=== PATIENT | male | born 1995 | race Caucasian/White ===

== ENCOUNTER → 2020-03-12 11:00 | Outpatient (BNVA) | payer MEDICARE, MEDICAID, SELFPAY | PROVIDERS: PCP Family Medicine; Visit Provider Specialist | DX: G40.309 Generalized idiopathic epilepsy and epileptic syndromes, not intractable, without status epilepticus (principal); F17.220 Nicotine dependence, chewing tobacco, uncomplicated | CPT/HCPCS: 99205 ==

== ENCOUNTER 2020-03-14 09:57 | Outpatient (CLI) | payer MEDICARE, MEDICAID, SELFPAY ==
--- NOTE | 2020-03-14 10:24 | XR_ITS ---
WS: [id number] CHEST 2 VIEWS HISTORY: Vagal nerve stimulator COMPARISON: None available. Lungs: Clear with no abnormality. No pleural effusion or pneumothorax. Cardiac size: Normal. Battery pack are available nerve stimulator projects over the mid LEFT thorax. Mediastinum/Aorta: Normal mediastinum. Bones: Fixation hardware mid RIGHT clavicle. XR/XR chest 2V* [id number] IMPRESSION: Normal chest.
--- NOTE | 2020-03-14 10:24 | XR_ITS ---
WS: [id number] SOFT TISSUE NECK 2 VIEW(S) TECHNIQUE: AP and lateral views of the neck in soft tissue technique are performed. HISTORY: Vagal Nerve Stimulator COMPARISON: None available. Vagal nerve stimulator wire and electrodes project over the LEFT neck in the anterior, inferior cervi antonio region. Visualized osseous structures are negative for acute process. Mild cervical straightening . XR/XR soft tissue neck [id number] IMPRESSION: Vagal nerve stimulator electrodes and wires project over the anterior inferior LEFT neck.
== END 2020-03-14 09:58 | disposition home or self-care (01) ==
LOC: RADWPI 10:01
PROVIDERS: PCP Family Medicine; Visit Provider Specialist
DX: Z96.89 Presence of other specified functional implants (principal)
CPT/HCPCS: 70360; 71046

== ENCOUNTER 2020-03-20 06:43 | Day surgery (SDC) | payer MEDICARE, MEDICAID, SELFPAY ==
[2020-03-19 14:50] VITALS: BMI 32.2
[2020-03-20 07:02] VITALS: BP 128/67; PULSE 62; RESP 18; TEMP 36.3; O2SAT 96
--- NOTE | 2020-03-20 07:17 | P.HPUD_ITS ---
Surgery/Procedure H&P Update DATE OF PROCEDURE: March 20, 2020 DATE H&P PERFORMED: 03/18/20 H&P UPDATE INFORMATION: I have reviewed H&P completed within last 30 days, No changes to prior documentation and H&P is in [facility] [place] EMR on date indicated PREOP DIAGNOSIS: Intractable epilepsy; VNS pulse generator end of service PRIMARY INDICATION FOR PROCEDURE: seizures PLANNED PROCEDURE: Operation Date: 03/20/20 08:00 Proposed Procedures Vagal Nerve Stimulator Pulse Generator Replacement 75326 G40.919 G40.309(Not Applicable) - Sid James MD
--- NOTE | 2020-03-20 07:22 | ANES.PREANE2 ---
Pre-Anesthetic Assessment Pre-Anesthetic Assessment: Height/Weight: Height 1.8 m Weight 104.78 kg Temp Pulse Resp BP Pulse Ox 97.3 F L 62 18 128/67 96 03/20/20 07:02 03/20/20 07:02 03/20/20 07:02 03/20/20 07:02 03/20/20 07:02 Preop Diagnosis: Intractable epilepsy; VNS pulse generator end of service Proposed Procedure: Operation Date: 03/20/20 08:00 Proposed Procedures p Vagal Nerve Stimulator Pulse Generator Replacement 48639 G40.919 G40.309(Not Applicable) - Sid James MD Familial anesthetic complications: denies Was Beta Nitza taken within 24 hours: N/A Last intake: Intake Last Liquid Date 03/19/20 Last Solid Date 03/19/20 Social: Social History: No alcohol and No tobacco Exam: Pre-Anes Outpt Exam: alert, oriented x 3 and clear to auscultation bilaterally Airway: Submandibular: WNL Cervical ROM: WNL MP: 1 Pulmonary: Pulmonary: None reported CV/HEM: CV/HEM: None reported : : None reported Hepatic: Hepatic: None reported GI: GI: GERD (controlled with diet) Metabolic: Metabolic: None reported Musc/skel: Musc/skel: None reported Comments: seizures Neuropsych: Neuropsych: Seizure (HX of sally LOGAN, last one was one month ago) Anesthetic Plan: ASA status: 2 Anesthesia: Anesthesia Evaluation and MAC Risk of > 500 ml blood loss (7ml/kg in children): No PFSH Anesthesia PFSH: Social History Smoking and tobacco status: never smoked Alcohol intake: never Lives independently: Yes Marital status: Single Current occupational status: employed History of recent travel: No Data Anesthesia Cardiac Studies: No Data to Display
[2020-03-20] MEDS: sodium chloride 0.9% 1,000 ML 30 ML IV (07:29)
--- NOTE | 2020-03-20 07:31 | P.OP_ITS ---
Brief Operative Note: Date of procedure: 03/20/20 Pre-op diagnosis: Intractable epilepsy; VNS pulse generator end of service. Post-op diagnosis: same Procedure Done: Replacement of subcutaneous programmable pulse generator, with connection to vagal nerve stimulation lead. Surgeon: Sid James Estimated blood loss (mL): 5 Complications: None Post-op Plan: Home per Ambulatory Surgery protocol. Condition: stable Disposition: same day Coding Level of Care Code Acute Billboard Poster Helper for Paula Felton
[2020-03-20 09:05] VITALS: BP 131/71; PULSE 78; RESP 18; TEMP 36.4; O2SAT 100
[2020-03-20 09:27] VITALS: BP 117/81; PULSE 56; RESP 18; O2SAT 96
--- NOTE | 2020-03-20 10:46 | PM.OP ---
Operative Report Date of procedure: March 20, 2020 Pre-op Diagnosis: Intractable epilepsy; VNS pulse generator end of service Post-op diagnosis: same Procedure Done: Replacement of subcutaneous programmable pulse generator, with connection to previously implanted vagal nerve stimulation electrode array. Implants: VNS Therapy Model #1000, Sentiva pulse generator. Specimens removed/disposition: Cyberonics Model #102 pulse generator Pathology: Explanted device to pathology for gross evaluation only. Surgeon: Sid James Anesthesia: MAC Estimated blood loss (mL): 5 IV fluids (mL): 600 Complications: None Condition: stable Disposition: same day Brief History: The patient is a 24-year-old white male with medically refractory seizures that have been managed with vagal nerve stimulation therapy. He was recently noted to have an increase in seizure frequency, and VNS battery depletion was demonstrated. He was referred by Dr. Blanco for expedited device replacement. After review of the diagnostic and treatment options with the risks/ potential benefits/rationale for each, the patient requested to proceed with surgical intervention for replacement of the vagal nerve stimulator pulse generator. Procedure: After routine preoperative evaluation and informed consent were obtained, the patient was taken to the Operating Room and positioned supine on the operating table. He was maintained under intravenous sedation by Anesthesia personnel. The prior left anterolateral chest surgical scar was marked with a skin marker. The surgical field was widely scrubbed with Betadine and prepped with DuraPrep. Sterile towels and drapes were applied, and Ioban surgical barrier was placed. The prior vertical incision site was infiltrated with 1% Xylocaine with Epinephrine. The skin incision was made and carried down into the subcutaneous tissues. Careful blunt and sharp dissection allowed the subcutaneous capsule containing the pulse generator and lead tail to be opened. The pulse generator-lead connection was noted to be intact. The pulse generator was delivered from the subcutaneous pocket. The set screw was released, and the lead tail pin was delivered from the port on the pulse generator. The explanted device was a Cyberonics Model #102 pulse generator. A VNS Therapy Sentiva Model #1000 pulse generator was brought to the surgical site, and the pin on the lead tail was advanced into the new pulse generator's port. The set screw was tightened with a torque wrench. The connection site was manipulated, and found to be secure. Device interrogation was performed. The impedance was acceptable. Heart rate sensing was verified. No bradycardia was demonstrated. The site was copiously irrigated with sterile saline and antibiotic irrigation. The pulse generator and lead tail were placed within the pocket. The lead tail was loosely coiled deep/adjacent to the pulse generator. The pulse generator was secured to the loose connective tissue with a single Silk suture through the anchor loop in the device body. The prior surgical scar showed some widening, and skin was debrided to normal tissue prior to closure. The incision was closed in multiple layers with 2-0 Vicryl Plus simple interrupted closure of the deep dermis, followed by 3-0 Vicryl running subcuticular closure of the skin. Steri-Strips were applied, and a sterile dressing was placed. The newly implanted device was not programmed intraoperatively. Dr. Blanco was contacted by phone, and requested that he present to her clinic immediately after discharge from the Ambulatory Surgery area for initial device programming. The patient was transferred onto the Recovery Room cart and returned to the Ambulatory Surgery Area for discharge home, as per the Ambulatory Surgery protocol. He tolerated the procedure well. All sponge, needle and instrument counts were correct at the completion of the procedure.
== END 2020-03-20 10:00 | disposition home or self-care (01) ==
PROVIDERS: PCP Family Medicine; Visit Provider Specialist
PROC: (CPT 64569; principal; 2020-03-20 08:00)
DX: Z45.42 Encounter for adjustment and management of neurostimulator (principal); K21.9 Gastro-esophageal reflux disease without esophagitis; G40.419 Other generalized epilepsy and epileptic syndromes, intractable, without status epilepticus
CPT/HCPCS: 64569; 12345; 88300; 96365; 99213; C1767; J1200; J2001; J2250; J2704; J3010; J3370; J3490; J7030; J7050

== ENCOUNTER → 2020-03-27 07:53 | Outpatient (BNVA) | payer MEDICARE, MEDICAID, SELFPAY | PROVIDERS: PCP Family Medicine; Visit Provider Specialist | DX: G40.419 Other generalized epilepsy and epileptic syndromes, intractable, without status epilepticus (principal); Z96.82 Presence of neurostimulator | CPT/HCPCS: 99213 ==

== ENCOUNTER → 2020-04-03 07:50 | Outpatient (BNVA) | payer MEDICARE, MEDICAID, SELFPAY | PROVIDERS: PCP Family Medicine; Visit Provider Specialist | DX: G40.419 Other generalized epilepsy and epileptic syndromes, intractable, without status epilepticus (principal); Z45.42 Encounter for adjustment and management of neurostimulator | CPT/HCPCS: 99213 ==

== ENCOUNTER 2020-04-08 18:44 | Emergency (ER) | payer MEDICARE, MEDICAID, SELFPAY ==
[2020-04-08 19:00] VITALS: BP 126/80; PULSE 98; RESP 16; TEMP 36.3; O2SAT 98; BMI 32.1
== END 2020-04-08 21:13 | disposition left against medical advice (07) ==
LOC: ER 18:55
PROVIDERS: Emergency Provider Emergency Medicine; PCP Family Medicine
DX: Z53.21 Procedure and treatment not carried out due to patient leaving prior to being seen by health care provider (principal)
CPT/HCPCS: 99281

== ENCOUNTER → 2020-04-24 09:50 | Outpatient (BNVA) | payer MEDICARE, MEDICAID, SELFPAY | PROVIDERS: PCP Family Medicine; Visit Provider Specialist | DX: G40.419 Other generalized epilepsy and epileptic syndromes, intractable, without status epilepticus (principal); Z96.89 Presence of other specified functional implants | CPT/HCPCS: 95971; 99213 ==

== ENCOUNTER 2020-06-16 18:30 | Emergency (ER) | payer MEDICARE, OTHER, MEDICAID, SELFPAY ==
[2020-06-16 18:37] VITALS: BP 119/71; PULSE 89; RESP 20; TEMP 37.4; O2SAT 96; BMI 31.4
--- NOTE | 2020-06-16 19:26 | W.ED.DENTAL ---
HPI - Dental/Oral General: Chief complaint: Dental/Oral Stated complaint: throat swelling Time Seen by Provider: 06/16/20 19:06 Source: patient Mode of arrival: ambulatory Limitations: no limitations History of Present Illness: HPI Narrative: Thong is a 24-year-old male comes in complaining of left tonsillar pain. Pain is been going for the past 2 to 3 days. He is able to swallow and has no difficulty breathing. He denies any fevers or chills. He denies any other focal complaints such as loss of sense of smell, sense of taste cough or shortness of breath. Associated symptoms: Denies ear or mastoid pain, fever(s), odynophagia or tongue swelling Review of Systems Const: Denies: fever(s), chills, body aches, fatigue, malaise or diaphoresis Eyes: Denies: change in vision, blurry vision, blind spots, photophobia, eye discharge or eye redness ENMT: Reports: throat pain; Denies: odynophagia, hoarseness, swelling of lips/tongue, oral sores, ear or mastoid pain, ear discharge, change in hearing or nasal discharge Card: Denies: chest pain, palpitations, irregular heart rhythm, edema, lightheadedness, syncope, pre-syncope, dyspnea on exertion or orthopnea Resp: Denies: dyspnea, productive cough, non-productive cough, wheezing, hemoptysis or chest congestion GI: Denies: abdominal pain, nausea, vomiting, hematemesis, coffee ground emesis, heartburn, diarrhea, constipation, GI cramping, hematochezia or melena : Denies: flank pain, dysuria, urinary frequency, urinary urgency or hematuria Musc: Denies: neck pain, back pain, extremity pain, extremity swelling, joint pain, joint swelling, joint redness, joint warmth or joint stiffness Skin/Breast: Denies: rash, pruritus, erythema, skin tenderness or jaundice Neuro: Denies: headache(s), numbness in extremities, weakness in extremities, sensory changes, lack of coordination, difficulty walking, dizziness, vertigo, confusion, Slurred speech present or seizure-like activity Eamon/Lymph: Denies: easy bruising, easy bleeding, petechiae, purpura or enlarged lymph nodes All/Imm: Denies: urticaria, throat swelling, tongue swelling, facial swelling or acute wheezing PFSH ED PFSH: Medical History Battery end of life of vagus nerve stimulator Intractable epilepsy Surgical History History of tonsillectomy and adenoidectomy S/P placement of VNS (vagus nerve stimulation) device (~2011) Placement: [facility] in [place], [place]; 2011 Pulse Generator Replacement, [facility] [place]; 03/20/2020 Social History Smoking and tobacco status: never smoked Alcohol intake: current Alcohol intake frequency: holidays/special occasions only Lives independently: Yes Marital status: Single Current occupational status: employed History of recent travel: No Physical Exam Const: COMMON NORMALS: no acute distress, patient oriented x3, no limitations, healthy appearing and well nourished GENERAL APPEARANCE: cooperative, well kempt and well developed HENMT: COMMON NORMALS: normocephalic, atraumatic, external ears normal, EAC's normal and Normal external nose present HEAD & SCALP: normal to inspection, normocephalic and atraumatic FACE & SINUS: normal facial exam and face symmetric NOSE: Normal external nose present and Normal nares present EXTERNAL EAR: Yes external ears normal EXTERNAL AUDITORY CANAL: EAC's normal MOUTH: Normal oral and palatal mucosa present, lip normal and tongue normal THROAT: other (Mild bilateral left greater than right tonsillar erythema.) Eye: COMMON NORMALS: Equal, round and reactive pupils present and conjunctivae normal GENERAL EYE: appearance normal, both eyes and all related structures ALIGNMENT: Yes alignment normal PERIORBITAL: periorbital findings normal EYELID: eyelids normal CONJUNCTIVA: Yes conjunctivae normal SCLERA: sclerae normal PUPIL: Yes Equal, round and reactive pupils present Neck/C-Spine: COMMON NORMALS: full ROM, no lymphadenopathy, supple, no meningeal signs and no JVD GENERAL: Yes normal visual inspection and Yes trachea midline Chest: COMMONS NORMALS: normal inspection of the chest and normal palpation of entire chest wall Resp: COMMON NORMALS: normal respiratory effort, No retractions and No use of accessory muscles EFFORT & INSPECTION: Yes able to speak in complete sentences and Yes symmetric chest movement AUSCULTATION: no crackles, no rales, no rhonchi and no wheezes Cardio: COMMON NORMALS: no JVD, regular rate, regular rhythm, S1 normal heart sound present and S2 normal heart sound present RATE: regular rate RHYTHM: regular rhythm HEART SOUNDS: S1 normal heart sound present, S2 normal heart sound present, no click, no gallops, no murmurs, no rubs and abnormal split S2 GI: COMMON NORMALS: Soft to palpation and No hepatosplenomegaly present PALPATION: Yes Soft to palpation, No Tenderness to palpation present (GI), No Guarding due to palpation present (GI), No Rigid due to palpation, Yes No hepatosplenomegaly present, No Hernia present, No Palpable mass present and No Pulsatile mass present : COMMON NORMALS: Yes no CVA tenderness BLADDER/KIDNEY EXAM: Yes no CVA tenderness Back/Pelvis: COMMON NORMALS: no CVA tenderness, thoracic and lumbar spine normal to inspection, no thoracic nor lumbar tenderness and thoraco-lumbar ROM normal Extremity: COMMON NORMALS: normal to inspection, full ROM, capillary refill normal, no joint enlargement, no clubbing, cyanosis or edema and no calf tenderness Neuro: COMMON NORMALS: patient oriented x3, CN's II-XII intact bilaterally, moves all extremities, no focal motor deficits and no sensory deficits noted MENINGEAL SIGNS: Yes no meningeal signs SPEECH: speech normal Psych: COMMON NORMALS: mental status grossly normal, Normal thought process present, cooperative, normal affect, speech normal and activity/motor behavior normal APPEARANCE: Yes well kempt SPEECH: Yes normal speech THOUGHT PROCESS: Normal thought process present Skin: COMMON NORMALS: no rashes or lesions noted, turgor normal, no jaundice, no petechiae and no mottling GENERAL SKIN EXAM: no rashes or lesions noted and turgor normal Course Vital Signs: Vital signs: Vital Signs Temperature 99.3 F 06/16/20 18:37 Pulse Rate 89 06/16/20 18:37 Respiratory Rate 20 H 06/16/20 18:37 Blood Pressure 119/71 06/16/20 18:37 Pulse Oximetry 96 06/16/20 18:37 MDM - Dental/Oral MDM Narrative: Medical decision making narrative: The patient based on exam has no clinical sign of peritonsillar abscess, retropharyngeal abscess or otherwise. Symptoms are mild and he is able to eat and drink without any difficulty. I will place him on Cleocin as he is allergic to penicillins. He agrees to return should his symptoms change or worsen. Discharge Plan Discharge Patient Disposition: Home Clinical Impression: Acute tonsillitis Qualifiers: Pharyngitis/tonsillitis etiology: unspecified etiology Qualified Code(s): J03.90 - Acute tonsillitis, unspecified Condition: Stable Prescriptions: New Cleocin HCl 150 mg capsule 300 mg PO Q6H 10 Days Qty: 80 RF: 0 No Action ondansetron HCl [Zofran] 4 mg tablet 4 mg PO Q6H PRN (Reason: nausea and vomiting) Qty: 20 RF: 0 Discharge Orders: Discharge Order (Routine); Ordered 06/16/20 Ordered By: Brenda Herrera Referrals: Mendez Jacob MD [Primary Care Provider] - 1-3 days Discharge Diet: Advance as tolerated Discharge Activity: Increase activity as tolerated Patient Instructions: Tonsillitis (ED) Activity Restrictions/Additional Instructions: Please return to the ER immediately for any of the signs or symptoms listed on your discharge instruction sheets, worsening/changing of your symptoms, you are not getting better as quickly as expected, or for ANY other cause or concerns. Return the ER for increased pain, swelling, fever or for any other cause for concern. Discharge Date/Time: 06/16/20 19:36 Coding Level of Care Code ED Chlorobutadiene Scrubber Operator for Paula Felton
[2020-06-16] MEDS: clindamycin 150 mg Capsule 300 MG PO (19:32)
[2020-06-16 20:00] LABS: Rapid Strep A Test Negative (Negative)
== END 2020-06-16 19:36 | disposition home or self-care (01) ==
PROVIDERS: Physician Assistant; Emergency Provider Emergency Medicine; PCP Family Medicine
DX: J03.90 Acute tonsillitis, unspecified (principal)
CPT/HCPCS: 12345; 87081; 87880; 99282; 99283